=== PATIENT | male | born 1990 | race Caucasian/White ===

== ENCOUNTER → 2018-07-12 10:39 | Outpatient (CLI) | payer OTHER, SELFPAY ==
--- NOTE | 2018-07-12 10:40 | DI.RAD.S_ITS ---
PROCEDURE: XR ANKLE RT MIN 3V INDICATIONS: ankle pain TECHNIQUE: 3 views of the ankle were acquired. COMPARISON: None. FINDINGS: Bones: No fractures or dislocations. Ankle mortise is normally aligned. No suspicious bony lesions. Soft tissues: No tibiotalar joint effusion. Achilles tendon appears intact. IMPRESSION: 1. No fracture or subluxation. Dictated by: Andrews Yoder M.D. on 07/12/2018 at 11:22 Approved by: Andrews Yoder M.D. on 07/12/2018 at 11:23
== END ==
PROVIDERS: Visit Provider Physician Assistant
DX: M25.571 Pain in right ankle and joints of right foot (principal)
CPT/HCPCS: 73610

== ENCOUNTER 2020-03-29 01:29 | Emergency (ER) | payer OTHER, SELFPAY ==
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
[2020-03-29 01:40] VITALS: BP 142/88; PULSE 72; RESP 17; TEMP 36.3; O2SAT 100; BMI 26.3
--- NOTE | 2020-03-29 01:41 | DI.RAD.S_ITS ---
PROCEDURE: XR RIBS LT MIN 3V W CXR1V INDICATIONS: fall with left sided chest pain TECHNIQUE: To views of the left ribs were acquired, along with a single view chest. COMPARISON: None. FINDINGS: Surgical changes and devices: None. Bones and chest wall: No fractures or dislocations. No suspicious bony lesions. Overlying soft tissues appear unremarkable. Lungs and pleura: No pleural effusions or pneumothorax. Lungs appear clear. Mediastinum: Mediastinal contours appear normal. Heart size is normal. IMPRESSION: No displaced rib fracture. No acute cardiopulmonary disease process. Dictated by: Angelina San MD, PhD on 03/29/2020 at 8:35 Approved by: Angelina San MD, PhD on 03/29/2020 at 8:36
[2020-03-29] MEDS: HYDROCODONE/ACET 5/325 PREPACK 1 BOTTLE MISC (02:50)
== END 2020-03-29 02:35 | disposition home or self-care (01) ==
PROVIDERS: Emergency Provider Emergency Medicine
DX: S20.212A Contusion of left front wall of thorax, initial encounter (principal); W05.1XXA Fall from non-moving nonmotorized scooter, initial encounter
CPT/HCPCS: 71101; 99283